=== PATIENT | female | born 1965 | race Caucasian/White ===

== ENCOUNTER 2016-06-08 21:35 | Emergency (ER) | payer SELFPAY ==
--- NOTE | 2016-06-08 22:14 | RAD ---
LEFT ELBOW FOUR VIEWS: History: Left elbow injury. FINDINGS: Radiocapitellar alignment is maintained. There is no acute fracture, dislocation or fluid distentio n of the joint capsule evident. IMPRESSION: No acute osseous abnormalities are demonstrated. POS: MAURICIO
--- NOTE | 2016-06-08 23:09 | ERRECORD ---
HEALTH SYSTEM EMERGENCY RECORD HPI ELBOW (21:48 DHAM) CHIEF COMPLAINT: Patient presents for evaluation of pain, to the left elbow. 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 It didn't really hurt at the time but the next morning it was more painful with a hint of swelling over the medial epicondyle. MECHANISM OF INJURY: Mechanism of injury: Blunt trauma, by direct blow. LOCATION: Symptoms are localized, most severe in the left medial condyle. QUALITY: Pain is dull in nature, described as aching. SEVERITY: Current severity of pain rated as 8/10. TIME COURSE: Gradual onset of symptoms, 2, days priror to arrival, Symptoms are worsening. ASSOCIATED WITH: No associated alcohol use, No associated distal injury, No associated distal neuro complaint, Associated with erythema, for 1 day, No associated fever, No associated finger pain, No associated hand pain, No associated hand numbness, No associated open wounds, Associated with shoulder pain, No associated tingling, Associated with warmth, No associated weakness distal to injury, No associated wrist pain. EXACERBATED BY: Patient's condition exacerbated by flexion, Patient's condition relieved by nothing because patient has not tried anything for relief. RELIEVED BY: Patient's condition relieved by remaining still, Patient's condition relieved by rest. ROS (21:54 DHAM) CONSTITUTIONAL: Historian denies chills, denies fever. MUSCULOSKELETAL: Historian reports arthralgias, denies deformity, denies fall, reports injury, reports joint redness, reports joint swelling, denies myalgias, denies neck pain. SKIN: Historian reports skin changes. NEUROLOGIC: Historian denies focal weakness, denies paresthesias. HEMO/LYMPHATIC: Historian denies abnormal blood clotting, denies easy bruising. ALLERGIC/IMMUNOLOGIC: Historian denies frequent infections, denies hives. PAST MEDICAL HISTORY (21:44 JDEA) MEDICAL HISTORY: Past medical history includes cardiac history, heart cath in 2004. FEMALE SURGICAL HISTORY: one , Surgical history of hysterectomy, Surgical history of tonsillectomy, cholecystectomy. SOCIAL HISTORY: Lives at home, with family, Patient drinks socially, Patient denies drug use, Patient is a former tobacco user, smoked cigarettes, Patient quit smoking in the past year, Tobacco &a-1R&a+25V*p+0X*f4130A*c202B*c15G*c2P*p-0X&a-25V&a+1R Name: Arielle Avila : 1965 F51 MedRec: [id number] AcctNum: [id number] Prepared: WedJun 09, 2016 01:14 by Interface Page 1 of 3 pMD [facility] EMERGENCY RECORD history notes: pk/day. KNOWN ALLERGIES No Known Drug Allergies CURRENT MEDICATIONS (WedJun 08, 2016 21:43 JDEA) reflux medication VITAL SIGNS (21:41 JDEA) VITAL SIGNS: BP: 150/70, Pulse: 96, Resp: 18, Temp: 98 (Oral), Pain: 8, O2 sat: 96 on Room Air, Time: 06/08/2016 21:41. PHYSICAL EXAM (21:54 DHAM) CONSTITUTIONAL: Vital Signs Reviewed, Patient afebrile, Pulse normal, Blood pressure normal, Respiratory rate normal, Normal pulse oximetry, Patient appears non toxic, Patient appears, in mild pain distress, Nursing notes reviewed. UPPER EXTREMITY: no pain to the right UE at all. she has chronic but intermittent left shoulder pain. No pain to int or ext rotation or flexion/extension/abduction of the shoulder. her left elbow has some moderate edema diffusely around the medial epicondyle with a hint of erythema and warmth. the maximal pain seems to be just over the medial epicondyle. she has full flexion and extension with mild pain as well as full pronation and supination with really no pain at all to the left elbow during this. distal neurovascular exam is normal. with normal cap refill, sensation and motor exam. no tenderness of the extensor bundle and resisted finger extension is normal and non-tender. NEURO: Corey coma scale 15, Neuro exam findings include patient oriented to person, place and time, Speech normal, Gait normal, Memory normal, Cranial nerves intact, no focal motor deficits, no focal sensory deficits. SKIN: Skin exam included findings of skin warm, dry, see UE above for skin exam. LYMPHATIC: Lymphatic exam normal. RADIOLOGYINTERPRETATION (22:07 DHAM) UPPER EXTERMITIES: Radiological interpretation of, the left elbow shows, elbow negative, no fracture, no dislocation, no fat pads, no effusion, no foreign body, no bony lesion, no degenerative joint disease. PROBLEM LIST No recorded problems DIAGNOSIS (22:07 LISAM) FINAL: PRIMARY: bursitis medial elbow. PRESCRIPTION No recorded prescriptions &a-1R&a+25V*p+0X*b2946A*c202B*c15G*c2P*p-0X&a-25V&a+1R Name: Austin Arielle J : 1965 0 MedRec: [id number] AcctNum: [id number] Prepared: WedJun 09, 2016 01:14 by Interface Page 2 of 3 pMD [facility] EMERGENCY RECORD DISPOSITION PATIENT: Disposition Type: Discharge, Disposition: *Discharge Home. (22:07 CARLENE) Patient left the department. (22:34 ABY) Lynn: CARLENE=MD Landy, Mp BADILLO=LUPE Terrell, Noris &a-1R&a+25V*p+0X*p0822K*c202B*c15G*c2P*p-0X&a-25V&a+1R Name: Arielle Avila : 1965 0 MedRec: [id number] AcctNum: [id number] Prepared: WedJun 09, 2016 01:14 by Interface Page 3 of 3 pMD MTDD
--- NOTE | 2016-06-08 23:10 | PICIS ---
[facility] EMERGENCY RECORD TRIAGE (WedJun 08, 2016 21:43 JDEA) TRIAGE NOTES: pt complaining of left elbow pain after hitting it on a lilly register. (WedJun 08, 2016 21:43 JDEA) PATIENT: NAME: Arielle Avila, AGE: 51, GENDER: female, : Wed1965, TIME OF GREET: WedJun 08, 2016 21:36, PREFERRED LANGUAGE: Burundian, ETHNICITY: Not or , ECODE BILLING MAP: [facility], SSN: [id number], Zip Code: [address], KG WEIGHT: 79.38, PHONE: , , , PERSON ID: [id number], PCP: [facility], . (WedJun 08, 2016 21:43 JDEA) COMPLAINT: LEFT ELBOW SWOLLEN. (WedJun 08, 2016 21:43 JDEA) ADMISSION: URGENCY: 4 Non Urgent, ADMISSION SOURCE: Work, TRANSPORT: Walk-in, BED: TRIAGE. (WedJun 08, 2016 21:43 JDEA) IMMUNIZATIONS: Flu vaccine up to date, Tetanus immunization up to date, Pneumococcal vaccine not up to date. (21:44 JDEA) TRIAGE SCREENING: Patient denies suicidal ideation, Patient denies presence of domestic violence. (21:44 JDEA) LMP: LMP: Not Applicable. (21:44 JDEA) PROVIDERS: TRIAGE NURSE: Noris Terrell RN. (WedJun 08, 2016 21:43 JDEA) VITAL SIGNS: BP 150/70, Pulse 96, Resp 18, Temp 98, (Oral), Pain 8, O2 Sat 96, on Room Air, Time 06/08/2016 21:41. (21:41 JDEA) PREVIOUS VISIT ALLERGIES: No Known Drug Allergies. (WedJun 08, 2016 21:43 JDEA) No Known Drug Allergies. (21:44 JDEA) KNOWN ALLERGIES No Known Drug Allergies CURRENT MEDICATIONS (WedJun 08, 2016 21:43 JDEA) reflux medication VITAL SIGNS (21:41 JDEA) VITAL SIGNS: BP: 150/70, Pulse: 96, Resp: 18, Temp: 98 (Oral), Pain: 8, O2 sat: 96 on Room Air, Time: 06/08/2016 21:41. NURSING ASSESSMENT: EXTREMITY UPPER (21:44 JDEA) CONSTITUTIONAL: Complex assessment performed, Patient arrives ambulatory, Gait steady, History obtained from patient, Patient appears comfortable, Patient cooperative, Patient alert, Oriented to person, place and time, Skin warm, Skin dry, Skin normal in color, Mucous membranes pink, Mucous membranes moist, Patient complains of elbow pain, pt in states that she hit her left elbow on a lilly register. PAIN: aching pain, to the left elbow, constant, on a scale 0-10 patient rates pain as 8. LEFT UPPER EXTREMITY: Left upper extremity assessment findings include capillary refill less than 2 seconds, Skin color normal to hand, Skin temperature to hand warm, Distal sensation intact, Muscle &a-1R&a+25V*p+0X*h2419S*c202B*c15G*c2P*p-0X&a-25V&a+1R Name: Arielle Avila Carmela : 1965 F51 MedRec: [id number] AcctNum: [id number] Prepared: WedJun 09, 2016 01:14 by Interface Page 1 of 5 pMD [facility] EMERGENCY RECORD tone normal, no edema present, radial pulse is +3. RIGHT UPPER EXTREMITY: Right upper extremity assessment findings include capillary refill less than 2 seconds, Skin color normal to hand, Skin temperature to hand warm, Distal sensation intact, Muscle tone normal, no edema present, radial pulse is +3. NOTES: Patient tolerated procedure well. SAFETY: Side rails up, Cart/Stretcher in lowest position, Call light within reach, Hospital ID band on. NURSING PROCEDURE: SPLINTING (22:15 MDRUCHI) PATIENT IDENTIFIER: Patient actively involved in identification process, Patient's identity verified by patient stating name, Patient's identity verified by hospital ID bracelet. SPLINTING: Splinting indicated for strain care, Splint applied to, the left elbow, sling applied, Immobilized in position of function. FOLLOW-UP: After procedure, capillary refill less than 2 seconds, After procedure, distal circulation intact, After procedure, distal motor function intact, After procedure, distal sensation intact, After procedure, distal pulses present. NOTES: Emotional support needed and given, Patient tolerated procedure well. SAFETY: Side rails up, Cart/Stretcher in lowest position, Family at bedside, Call light within reach, Hospital ID band on. ORDER DETAILS Order Name: Miscellaneous Nurse Order(s), Status: Done, Time: 22:26 06/08/2016, User: HAMILTON, - Ordered for: MD Bill Darren, - Entered by: MD Bill Darren - [facility] Jun 08, 2016 22:13, - Quantity: 1, Order Name: XR Elbow Lt 4 View STANDARD, Status: Active, Time: 21:49 06/08/2016, User: CARLENE, - Ordered for: MD Bill Darren, - Entered by: MD Bill Darren - [facility] Jun 08, 2016 21:49, - Quantity: 1. HPI ELBOW (21:48 [facility]) CHIEF COMPLAINT: Patient presents for evaluation of pain, to the left elbow. 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 It didn't really hurt at the time but the next morning it was more painful with a hint of swelling over the medial epicondyle. MECHANISM OF INJURY: Mechanism of injury: Blunt trauma, by direct blow. LOCATION: Symptoms are localized, most severe in the left medial condyle. QUALITY: Pain is dull in nature, described as aching. SEVERITY: Current severity of pain &a-1R&a+25V*p+0X*k7804S*c202B*c15G*c2P*p-0X&a-25V&a+1R Name: Austin Arielle J : 1965 F51 MedRec: [id number] AcctNum: [id number] Prepared: WedJun 09, 2016 01:14 by Interface Page 2 of 5 pMD [facility] EMERGENCY RECORD rated as 8/10. TIME COURSE: Gradual onset of symptoms, 2, days priror to arrival, Symptoms are worsening. ASSOCIATED WITH: No associated alcohol use, No associated distal injury, No associated distal neuro complaint, Associated with erythema, for 1 day, No associated fever, No associated finger pain, No associated hand pain, No associated hand numbness, No associated open wounds, Associated with shoulder pain, No associated tingling, Associated with warmth, No associated weakness distal to injury, No associated wrist pain. EXACERBATED BY: Patient's condition exacerbated by flexion, Patient's condition relieved by nothing because patient has not tried anything for relief. RELIEVED BY: Patient's condition relieved by remaining still, Patient's condition relieved by rest. ROS (21:54 DHAM) CONSTITUTIONAL: Historian denies chills, denies fever. MUSCULOSKELETAL: Historian reports arthralgias, denies deformity, denies fall, reports injury, reports joint redness, reports joint swelling, denies myalgias, denies neck pain. SKIN: Historian reports skin changes. NEUROLOGIC: Historian denies focal weakness, denies paresthesias. HEMO/LYMPHATIC: Historian denies abnormal blood clotting, denies easy bruising. ALLERGIC/IMMUNOLOGIC: Historian denies frequent infections, denies hives. PAST MEDICAL HISTORY (21:44 JDEA) MEDICAL HISTORY: Past medical history includes cardiac history, heart cath in 2004. FEMALE SURGICAL HISTORY: one , Surgical history of hysterectomy, Surgical history of tonsillectomy, cholecystectomy. SOCIAL HISTORY: Lives at home, with family, Patient drinks socially, Patient denies drug use, Patient is a former tobacco user, smoked cigarettes, Patient quit smoking in the past year, Tobacco history notes: pk/day. PHYSICAL EXAM (21:54 DHAM) CONSTITUTIONAL: Vital Signs Reviewed, Patient afebrile, Pulse normal, Blood pressure normal, Respiratory rate normal, Normal pulse oximetry, Patient appears non toxic, Patient appears, in mild pain distress, Nursing notes reviewed. UPPER EXTREMITY: no pain to the right UE at all. she has chronic but intermittent left shoulder pain. No pain to int or ext rotation or flexion/extension/abduction of the shoulder. her left elbow has some moderate edema diffusely around the medial epicondyle with a hint of erythema and warmth. the maximal pain seems to be just &a-1R&a+25V*p+0X*d5348E*c202B*c15G*c2P*p-0X&a-25V&a+1R Name: AvilaDeepneli Casey : 1965 F51 MedRec: [id number] AcctNum: [id number] Prepared: Jayne Jun 09, 2016 01:14 by Interface Page 3 of 5 pMD [facility] EMERGENCY RECORD over the medial epicondyle. she has full flexion and extension with mild pain as well as full pronation and supination with really no pain at all to the left elbow during this. distal neurovascular exam is normal. with normal cap refill, sensation and motor exam. no tenderness of the extensor bundle and resisted finger extension is normal and non-tender. NEURO: Corey coma scale 15, Neuro exam findings include patient oriented to person, place and time, Speech normal, Gait normal, Memory normal, Cranial nerves intact, no focal motor deficits, no focal sensory deficits. SKIN: Skin exam included findings of skin warm, dry, see UE above for skin exam. LYMPHATIC: Lymphatic exam normal. EVENTS TRANSFER: Triage to Emergency Triage. (WedJun 08, 2016 21:43 JDEA) Emergency Triage to Main ED -05. (21:45 JDEA) Removed from Emergency Main ED -05. (22:34 JDEA) RADIOLOGYINTERPRETATION (22:07 DHAM) UPPER EXTERMITIES: Radiological interpretation of, the left elbow shows, elbow negative, no fracture, no dislocation, no fat pads, no effusion, no foreign body, no bony lesion, no degenerative joint disease. PROBLEM LIST No recorded problems DIAGNOSIS (22:07 DHAM) FINAL: PRIMARY: bursitis medial elbow. DISPOSITION PATIENT: Disposition Type: Discharge, Disposition: *Discharge Home. (22:07 DHAM) Patient left the department. (22:34 JDEA) INSTRUCTION (22:11 DHAM) DISCHARGE: BURSITIS, ELBOW (OLECRANON). FOLLOWUP: [facility], ., Clinic, [address] [place] [address], [address], [facility] , . SPECIAL: This doesn't appear to be an olecranon bursitis but rather a bursitis of the medial elbow. Rest, ice on 30 minutes and off 30 minutes, sling for several days (coming out of the sling 5-10 times a day to work your range of motion of the left elbow as I demonstrated here toncorrie). Aleve 2 twice a day for several days up to a week. Continue Prilosec to protect your stomach while taking the Aleve. Light duty for several days. See your pcp in 72 hours for recheck to consider relaxing your &a-1R&a+25V*p+0X*i9453O*c202B*c15G*c2P*p-0X&a-25V&a+1R Name: Arielle Avila : 1965 [facility] MedRec: [id number] AcctNum: [id number] Prepared: WedJun 09, 2016 01:14 by Interface Page 4 of 5 pMD [facility] EMERGENCY RECORD restrictions. PRESCRIPTION No recorded prescriptions IMAGING (22:31 HAMILTON) *DISCHARGE INSTRUCTIONS RECEIPT: Image captured from scanner. *SUPPLY CHARGE SHEET: Image captured from scanner. ADMIN (WedJun 09, 2016 01:09 CARLENE) DIGITAL SIGNATURE: MD Bill Darren. Lynn: CARLENE=MD Bill Darren JDEA=LUPE Terrell, Noris VILLASENOR=LUPE Cosby, Christina &a-1R&a+25V*p+0X*h9142K*c202B*c15G*c2P*p-0X&a-25V&a+1R Name: Arielle Avila : 1965 [facility] MedRec: [id number] AcctNum: [id number] Prepared: WedJun 09, 2016 01:14 by Interface Page 5 of 5 pMD MTDD
== END 2016-06-08 22:20 | disposition home or self-care (01) ==
LOC: MADERS 21:35
DX: M70.32 Other bursitis of elbow, left elbow (principal); Z87.891 Personal history of nicotine dependence
CPT/HCPCS: 99283

== ENCOUNTER 2017-10-05 15:57 | Emergency (ER) | payer SELFPAY ==
[2017-10-05 16:33] LABS: Bilirubin Negative (Negative); Blood, Urine Moderate (Negative); Glucose, Urine (Dipstick) Negative (Negative); Leukocyte Trace (Negative); Nitrite Negative (Negative); Protein, Urine (Dipstick) Negative (Neg-Trace); Urobilinogen 0.2 mg/dL (0.2-1.0)
[2017-10-05 16:35] LABS: Pregnancy Test - Urine (BHCG) Negative (Negative); Pregu Control Background? CLEAR/WHITE (CLR/WHITE); Pregu Control Bar Appear? YES (CONTROL BAR)
[2017-10-05 16:36] LABS: Bacteria/HPF 1+ HPF (None Seen); Clarity Hazy (Clear); RBC/HPF 0-3 HPF (0-3); Squamous Epithelial 0-3 HPF (0-3)
[2017-10-05 17:24] LABS: #Eosinphils 0.1 thou/uL (0.0-0.7); #Lymphocytes 2.1 thou/uL (1.20-3.40); #Monocytes 0.6 thou/uL (0.11-0.59); #Neutrophils 6.3 thou/uL (1.40-6.50); %Basophils 0.5 % (0.0-1.0); %Eosinophils 1.1 % (0.0-10.0); %Lymphocytes 22.6 % (21.0-51.0); %Neutrophils 68.9 % (42.0-75.0); Hemoglobin 13.1 g/dL (12.0-16.0); Mean Corpuscular HGB CONC 32.9 g/dL (32.0-36.0); Mean Corpuscular Hemoglobin 27.5 pg (27.0-31.0); Mean Corpuscular Volume 83.5 fl (81.0-99.0); Mean Platelet Volume 7.9 fL (7.4-10.4); Platelet Count 249 thou/uL (130-400); RBC Distribution Width 11.6 % (11.5-14.5); Red Blood Cell (RBC) Count 4.78 mill/uL (4.20-5.40); White Blood Cell (WBC) Count 9.1 thou/uL (4.8-10.8)
[2017-10-05] MEDS ORDERED: Ketorolac Tromethamine 30 MG/ML VIAL ONE (17:24)
[2017-10-05] MEDS ORDERED: HYDROcodone/Acetaminophen 10/325 mg Tablet ONE (17:24)
[2017-10-05] MEDS ORDERED: Sulfameth/Trimethoprim DS 800-160mg TAB ONE (17:24)
[2017-10-05] MEDS ORDERED: Ondansetron ODT 4 MG TAB ONE (17:24)
[2017-10-05 17:41] LABS: ALT (SGPT) 16 U/L (8-55); AST (SGOT) 14 U/L (5-34); Alkaline Phosphatase 69 U/L (40-150); Anion Gap 14 mmol/L (10-20); BUN (Urea Nitrogen) 11 mg/dL (9.8-20.1); Bilirubin, Total 0.4 mg/dL (0.2-1.2); Calc. Creatinine Clearance 0 mL/min (70-130); Calcium 8.8 mg/dL (7.8-10.44); Carbon Dioxide 32 mmol/L (22-29); Chloride 100 mmol/L (98-107); Estimated GFR-MDRD 83; Globulin 2.8 g/dL (2.4-3.5); Glucose 72 mg/dL (70-105); Lipase 38 U/L (8-78); Protein, Total 6.8 g/dL (6.0-8.3); Sodium 143 mmol/L (136-145)
== END 2017-10-05 19:34 | disposition home or self-care (01) ==
LOC: MADERS 15:57
DX: N39.0 Urinary tract infection, site not specified (principal); E03.9 Hypothyroidism, unspecified; K21.9 Gastro-esophageal reflux disease without esophagitis; I10 Essential (primary) hypertension; Z87.891 Personal history of nicotine dependence; Z79.899 Other long term (current) drug therapy; Z79.82 Long term (current) use of aspirin
CPT/HCPCS: 36415; 80053; 81001; 81025; 82150; 83690; 85025; 87077; 87086; 87186; 96374; J1885; Q0162

== ENCOUNTER 2018-01-09 10:18 | Emergency (ER) | payer SELFPAY ==
[2018-01-09] MEDS ORDERED: Aspirin 325 MG TAB ONE (10:40)
[2018-01-09] MEDS ORDERED: Famotidine 20 MG TAB ONE (10:40)
[2018-01-09 10:47] LABS: #Basophils 0.1 thou/uL (0.0-0.2); #Eosinphils 0.1 thou/uL (0.0-0.7); #Lymphocytes 2.4 thou/uL (1.20-3.40); #Monocytes 0.6 thou/uL (0.11-0.59); #Neutrophils 5.2 thou/uL (1.40-6.50); %Eosinophils 1.2 % (0.0-10.0); %Lymphocytes 28.2 % (21.0-51.0); %Monocytes 7.4 % (0.0-10.0); %Neutrophils 62.2 % (42.0-75.0); Hemoglobin 16.2 g/dL (12.0-16.0); Mean Corpuscular HGB CONC 33.4 g/dL (32.0-36.0); Mean Corpuscular Hemoglobin 28.6 pg (27.0-31.0); Mean Corpuscular Volume 85.6 fL (78.0-98.0); Platelet Count 321 thou/uL (130-400); RBC Distribution Width 11.7 % (11.5-14.5); Red Blood Cell (RBC) Count 5.64 mill/uL (4.20-5.40); White Blood Cell (WBC) Count 8.4 thou/uL (4.8-10.8)
--- NOTE | 2018-01-09 11:03 | RAD ---
PORTABLE UPRIGHT FRONTAL CHEST RADIOGRAPH: DATE: 01/09/18. COMPARISON: 10/09/14. HISTORY: Hypertension. FINDINGS: There is mild elevation of the right hemidiaphragm. There is no pneumothorax, pleural fluid, focal c onsolidation, or alveolar edema. Rounded density at the lower midline chest suggests hiatal hernia. IMPRESSION: No acute findings. POS: LINDA
[2018-01-09 11:06] LABS: Anion Gap 17 mmol/L (10-20); BUN (Urea Nitrogen) 41 mg/dL (9.8-20.1); Calc. Creatinine Clearance 0 mL/min (70-130); Carbon Dioxide 26 mmol/L (22-29); Chloride 100 mmol/L (98-107); Estimated GFR-MDRD 29; Glucose 96 mg/dL (70-105); Potassium 3.8 mmol/L (3.5-5.1); Sodium 139 mmol/L (136-145)
[2018-01-09 11:10] LABS: CKMB 1.4 ng/mL (0-6.6); Troponin I Less than 0.010 ng/mL (< 0.028)
[2018-01-09 11:51] LABS: Bilirubin Negative (Negative); Blood, Urine Negative (Negative); Clarity Slightly Cloudy (Clear); Glucose, Urine (Dipstick) Negative (Negative); Leukocyte Trace (Negative); Nitrite Positive (Negative); Protein, Urine (Dipstick) Negative (Neg-Trace); Urobilinogen 0.2 mg/dL (0.2-1.0)
[2018-01-09 12:00] LABS: Bacteria/HPF 4+ HPF (None Seen); RBC/HPF 0-3 HPF (0-3)
[2018-01-09 12:01] LABS: Crystals/HPF 1+ CA OXALATE HPF (Negative)
[2018-01-09 12:55] LABS: INR-International Normal Ratio 0.8; PTT 25.8 SEC (22.9-36.1); Prothrombin Time 11.6 SEC (12.0-14.7)
[2018-01-09 12:57] LABS: D-Dimer Test Less than 0.27 *mcg/mL (0.27-0.43)
[2018-01-09] MEDS ORDERED: Sodium Chloride 0.9% 1,000 ML BAG ONE (14:12)
== END 2018-01-09 11:54 | disposition short-term general hospital (02) ==
LOC: MADERS 10:18
DX: I95.9 Hypotension, unspecified (principal); N19 Unspecified kidney failure; E03.9 Hypothyroidism, unspecified; I10 Essential (primary) hypertension; Z87.891 Personal history of nicotine dependence; Z79.82 Long term (current) use of aspirin; Z79.899 Other long term (current) drug therapy
CPT/HCPCS: 71045; 80048; 81003; 81015; 82553; 83605; 83880; 84443; 84484; 85025; 85379; 85610; 85730; 93005; 94760; 96360; J7050

== ENCOUNTER 2018-10-29 16:18 | Emergency (ER) | payer OTHER ==
--- NOTE | 2018-10-29 17:12 | RAD ---
EXAM: Chest PA and lateral: HISTORY: Chest pain COMPARISON: 11/17/2014 FINDINGS: Heart: Normal cardiac silhouette Aorta: Unremarkable Pulmonary vessels: Normal Costophrenic angles: Costophrenic angles are clear. Lungs: No consolidation or masses. Pneumothorax: No pneumothorax Osseous structures: No osseous abnormalities Incidental hiatal hernia is noted IMPRESSION: No acute cardiopulmonary process.
[2018-10-29 17:32] LABS: #Basophils 0.1 thou/uL (0.0-0.2); #Eosinphils 0.1 thou/uL (0.0-0.7); #Lymphocytes 2.2 thou/uL (1.20-3.40); #Monocytes 0.7 thou/uL (0.11-0.59); #Neutrophils 5.3 thou/uL (1.40-6.50); %Basophils 0.9 % (0.0-1.0); %Eosinophils 0.8 % (0.0-10.0); %Lymphocytes 25.7 % (21.0-51.0); %Monocytes 8.8 % (0.0-10.0); %Neutrophils 63.7 % (42.0-75.0); Hemoglobin 12.8 g/dL (12.0-16.0); Mean Corpuscular HGB CONC 33.5 g/dL (32.0-36.0); Mean Corpuscular Hemoglobin 26.7 pg (27.0-31.0); Mean Corpuscular Volume 79.6 fL (78.0-98.0); Mean Platelet Volume 7.5 fL (7.4-10.4); Platelet Count 276 thou/uL (130-400); RBC Distribution Width 12.6 % (11.5-14.5); Red Blood Cell (RBC) Count 4.79 mill/uL (4.20-5.40); White Blood Cell (WBC) Count 8.4 thou/uL (4.8-10.8)
[2018-10-29 17:44] LABS: ALT (SGPT) 18 U/L (8-55); AST (SGOT) 15 U/L (5-34); Albumin 4.1 g/dL (3.5-5.0); Alkaline Phosphatase 71 U/L (40-150); Anion Gap 15 mmol/L (10-20); BUN (Urea Nitrogen) 42 mg/dL (9.8-20.1); Bilirubin, Total 0.3 mg/dL (0.2-1.2); Calc. Creatinine Clearance 0 mL/min (70-130); Calcium 8.7 mg/dL (7.8-10.44); Carbon Dioxide 22 mmol/L (22-29); Chloride 103 mmol/L (98-107); Estimated GFR-MDRD 35; Globulin 2.8 g/dL (2.4-3.5); Glucose 98 mg/dL (70-105); Potassium 4.1 mmol/L (3.5-5.1); Protein, Total 6.9 g/dL (6.0-8.3); Sodium 136 mmol/L (136-145)
[2018-10-29] MEDS ORDERED: Aspirin 325 MG TAB ONE (18:15)
[2018-10-29] MEDS ORDERED: Sodium Chloride 0.9% 1,000 ML ONE (18:15)
[2018-10-30] MEDS ORDERED: Sodium Chloride 0.9% 1,000 ML BAG ONE (16:30)
== END 2018-10-29 19:17 | disposition short-term general hospital (02) ==
LOC: MADERS 16:18
DX: R07.2 Precordial pain (principal); N19 Unspecified kidney failure; I95.9 Hypotension, unspecified; E03.9 Hypothyroidism, unspecified; K21.9 Gastro-esophageal reflux disease without esophagitis; I10 Essential (primary) hypertension; Z87.891 Personal history of nicotine dependence; Z79.899 Other long term (current) drug therapy; Z79.82 Long term (current) use of aspirin
CPT/HCPCS: 71046; 80053; 83605; 83880; 84484; 85025; 93005; 96360; J7050

== ENCOUNTER 2019-09-23 03:49 | Emergency (ER) | payer SELFPAY ==
[2019-09-23] MEDS ORDERED: Sucralfate 1 GM TAB ONE (04:26)
[2019-09-23] MEDS ORDERED: Mag-Al Plus 1200 MG/1200 MG/120 MG/30 ML UDCUP ONE (04:27)
[2019-09-23] MEDS ORDERED: Lidocaine Viscous Sol 2% 15 ml UD Cup ONE (04:27)
[2019-09-23 04:45] LABS: #Basophils 0.1 thou/uL (0.0-0.2); #Eosinphils 0.1 thou/uL (0.0-0.7); #Lymphocytes 2.3 thou/uL (1.20-3.40); #Monocytes 0.7 thou/uL (0.11-0.59); #Neutrophils 4.1 thou/uL (1.40-6.50); %Basophils 0.8 % (0.0-1.0); %Lymphocytes 32.7 % (21.0-51.0); %Monocytes 9.5 % (0.0-10.0); Hemoglobin 10.6 g/dL (12.0-16.0); Hypochromia SLIGHT = 6-15 cells (100X) (0-5/hpf); MDiff Complete? YES; Mean Corpuscular HGB CONC 30.6 g/dL (32.0-36.0); Mean Corpuscular Volume 78.3 fL (78.0-98.0); Mean Platelet Volume 7.5 fL (7.4-10.4); Microcytosis MODERATE=15-30 cells (100X) (0-5/hpf); Platelet Count 357 thou/uL (130-400); RBC Distribution Width 12.7 % (11.5-14.5); Red Blood Cell (RBC) Count 4.36 mill/uL (4.20-5.40); White Blood Cell (WBC) Count 7.3 thou/uL (4.8-10.8)
[2019-09-23 04:47] LABS: BHCG - Serum Negative (NEGATIVE); Pregs Control Background? CLEAR/WHITE (CLR/WHITE); Pregs Control Bar Appear? YES (CONTROL BAR)
[2019-09-23 04:53] LABS: ALT (SGPT) 9 U/L (8-55); AST (SGOT) 12 U/L (5-34); Albumin 4.1 g/dL (3.5-5.0); Alkaline Phosphatase 74 U/L (40-110); Anion Gap 14 mmol/L (10-20); BUN (Urea Nitrogen) 14 mg/dL (9.8-20.1); Bilirubin, Total 0.3 mg/dL (0.2-1.2); Calc. Creatinine Clearance 0 mL/min (70-130); Calcium 8.9 mg/dL (7.8-10.44); Carbon Dioxide 24 mmol/L (22-29); Chloride 107 mmol/L (98-107); Estimated GFR-MDRD 53; Globulin 2.7 g/dL (2.4-3.5); Glucose 92 mg/dL (70-105); Lipase 32 U/L (8-78); Protein, Total 6.8 g/dL (6.0-8.3); Sodium 141 mmol/L (136-145)
== END 2019-09-23 06:10 | disposition home or self-care (01) ==
LOC: MADERS 03:49
DX: K29.00 Acute gastritis without bleeding (principal); F32.9 Major depressive disorder, single episode, unspecified; E03.9 Hypothyroidism, unspecified; K21.9 Gastro-esophageal reflux disease without esophagitis; I10 Essential (primary) hypertension; Z87.891 Personal history of nicotine dependence; Z79.899 Other long term (current) drug therapy
CPT/HCPCS: 36415; 80053; 82274; 83605; 83690; 84703; 85025; 93005

== ENCOUNTER 2020-04-05 13:26 | Emergency (ER) | payer SELFPAY ==
[2020-04-05 14:01] LABS: #Basophils 0.1 thou/uL (0.0-0.2); #Eosinphils 0.1 thou/uL (0.0-0.7); #Lymphocytes 1.2 thou/uL (1.20-3.40); #Monocytes 0.5 thou/uL (0.11-0.59); #Neutrophils 4.7 thou/uL (1.40-6.50); %Basophils 1.7 % (0.0-1.0); %Eosinophils 1.7 % (0.0-10.0); %Lymphocytes 18.1 % (21.0-51.0); %Monocytes 7.9 % (0.0-10.0); %Neutrophils 70.7 % (42.0-75.0); Hemoglobin 11.2 g/dL (12.0-16.0); Mean Corpuscular HGB CONC 29.4 g/dL (32.0-36.0); Mean Corpuscular Hemoglobin 19.4 pg (27.0-31.0); Mean Corpuscular Volume 65.9 fL (78.0-98.0); Mean Platelet Volume 8.9 fL (7.4-10.4); Platelet Count 363 thou/uL (130-400); RBC Distribution Width 14.6 % (11.5-14.5); Red Blood Cell (RBC) Count 5.77 mill/uL (4.20-5.40); White Blood Cell (WBC) Count 6.7 thou/uL (4.8-10.8)
[2020-04-05 14:04] LABS: Anisocytosis SLIGHT = 6-15 cells (100X) (0-5/hpf); Platelet Morphology Comment Appears Adequate
--- NOTE | 2020-04-05 14:15 | RAD ---
SINGLE VIEW CHEST: Date: 04/05/2020 COMPARISON: 01/09/18. HISTORY: Chest pain. FINDINGS: Single view of the chest shows normal sized cardiomediastinal silhouette. There is stable elevation o f the right hemidiaphragm. There is no evidence of consolidation, mass, or pleural effusion. The bone s are unremarkable. IMPRESSION: No evidence of acute cardiopulmonary disease. POS: EAA
[2020-04-05 14:23] LABS: ALT (SGPT) 13 U/L (8-55); AST (SGOT) 14 U/L (5-34); Albumin 4.1 g/dL (3.5-5.0); Alkaline Phosphatase 89 U/L (40-110); Anion Gap 15 mmol/L (10-20); BUN (Urea Nitrogen) 14 mg/dL (9.8-20.1); Bilirubin, Total 0.5 mg/dL (0.2-1.2); CK (CPK) 43 U/L (29-168); Calc. Creatinine Clearance 0 mL/min (70-130); Calcium 8.8 mg/dL (7.8-10.44); Carbon Dioxide 23 mmol/L (22-29); Chloride 105 mmol/L (98-107); Globulin 2.8 g/dL (2.4-3.5); Glucose 110 mg/dL (70-105); Lipase 25 U/L (8-78); Potassium 3.9 mmol/L (3.5-5.1); Protein, Total 6.9 g/dL (6.0-8.3); Sodium 139 mmol/L (136-145)
[2020-04-05] MEDS ORDERED: Aspirin Chewable 81 MG TAB ONE (15:13)
== END 2020-04-05 15:22 | disposition short-term general hospital (02) ==
LOC: MADERS 13:26
DX: R07.9 Chest pain, unspecified (principal); K21.9 Gastro-esophageal reflux disease without esophagitis; I10 Essential (primary) hypertension; Z87.891 Personal history of nicotine dependence; Z79.899 Other long term (current) drug therapy
CPT/HCPCS: 36415; 71045; 80053; 82550; 83690; 83880; 84484; 85025; 85379; 93005; 94760

== ENCOUNTER 2021-02-21 18:52 | Emergency (ER) | payer SELFPAY ==
[2021-02-21] MEDS ORDERED: Cephalexin 500 MG CAP ONE (20:35)
== END 2021-02-21 20:39 | disposition home or self-care (01) ==
LOC: MADERS 18:52
DX: L03.311 Cellulitis of abdominal wall (principal); K21.9 Gastro-esophageal reflux disease without esophagitis; I10 Essential (primary) hypertension; Z87.891 Personal history of nicotine dependence; Z79.899 Other long term (current) drug therapy

== ENCOUNTER 2021-05-23 06:54 | Emergency (ER) | payer SELFPAY ==
[2021-05-23 07:45] LABS: Bilirubin Negative (Negative); Blood, Urine Negative (Negative); Clarity Clear (Clear); Glucose, Urine (Dipstick) Negative (Negative); Ketone, Urine Negative (Negative); Leukocyte Negative (Negative); Nitrite Negative (Negative); Protein, Urine (Dipstick) Negative (Neg-Trace); Urobilinogen 0.2 mg/dL (Less than 2); pH, Urine 5.5 (5.0-9.0)
[2021-05-23 07:51] LABS: Specific Gravity, Urine 1.028 (1.002-1.036)
[2021-05-23 08:05] LABS: #Basophils 0.1 thou/uL (0.0-0.2); #Eosinphils 0.1 thou/uL (0.0-0.7); #Lymphocytes 1.6 thou/uL (1.20-3.40); #Monocytes 0.5 thou/uL (0.11-0.59); #Neutrophils 3.4 thou/uL (1.40-6.50); %Basophils 2.3 % (0.0-1.0); %Eosinophils 2.2 % (0.0-10.0); %Lymphocytes 27.3 % (21.0-51.0); %Neutrophils 59.1 % (42.0-75.0); Hemoglobin 11.3 g/dL (12.0-16.0); Mean Corpuscular HGB CONC 30.9 g/dL (32.0-36.0); Mean Corpuscular Hemoglobin 23.7 pg (27.0-31.0); Mean Corpuscular Volume 76.9 fL (78.0-98.0); Mean Platelet Volume 7.4 fL (7.4-10.4); Platelet Count 304 thou/uL (130-400); RBC Distribution Width 13.4 % (11.5-14.5); Red Blood Cell (RBC) Count 4.75 mill/uL (4.20-5.40); White Blood Cell (WBC) Count 5.7 thou/uL (4.8-10.8)
[2021-05-23 08:16] LABS: Anisocytosis SLIGHT = 6-15 cells (100X) (0-5/hpf); Platelet Morphology Comment Appears Adequate
[2021-05-23 08:23] LABS: Globulin 2.6 g/dL (2.4-3.5)
[2021-05-23 08:24] LABS: Alkaline Phosphatase 77 U/L (40-110)
[2021-05-23 08:26] LABS: ALT (SGPT) 14 U/L (8-55); AST (SGOT) 12 U/L (5-34); Anion Gap 14 mmol/L (10-20); BUN (Urea Nitrogen) 13 mg/dL (9.8-20.1); Bilirubin, Total 0.4 mg/dL (0.2-1.2); Calc. Creatinine Clearance 0 mL/min (70-130); Calcium 8.7 mg/dL (7.8-10.44); Carbon Dioxide 25 mmol/L (22-29); Chloride 107 mmol/L (98-107); Glucose 100 mg/dL (70-105); Potassium 3.6 mmol/L (3.5-5.1); Protein, Total 6.6 g/dL (6.0-8.3); Sodium 142 mmol/L (136-145)
[2021-05-23] MEDS ORDERED: Pantoprazole 40 MG VIAL ONE (09:59)
[2021-05-23] MEDS ORDERED: Ondansetron PF 4 MG/2 ML Vial ONE (09:59)
[2021-05-23] MEDS ORDERED: Pantoprazole 40 MG VIAL IVP SCH (10:15)
[2021-05-23] MEDS ORDERED: Ondansetron PF 4 MG/2 ML Vial IVP SCH (10:15)
== END 2021-05-23 10:27 | disposition home or self-care (01) ==
LOC: MADERS 06:54
DX: R10.31 Right lower quadrant pain (principal); R11.0 Nausea; K21.9 Gastro-esophageal reflux disease without esophagitis; I10 Essential (primary) hypertension; Z87.891 Personal history of nicotine dependence; Z79.899 Other long term (current) drug therapy
CPT/HCPCS: 74177; 80053; 81003; 83605; 85025; 96374; 96375; C9113; J2405

== ENCOUNTER 2022-06-09 12:29 | Emergency (ER) | payer OTHER, SELFPAY ==
[2022-06-09] MEDS ORDERED: Ibuprofen 400 MG TAB ONE (14:53)
== END 2022-06-09 14:55 | disposition home or self-care (01) ==
LOC: MADERS 12:29
DX: S16.1XXA Strain of muscle, fascia and tendon at neck level, initial encounter (principal); S40.021A Contusion of right upper arm, initial encounter; K21.9 Gastro-esophageal reflux disease without esophagitis; I10 Essential (primary) hypertension; J44.9 Chronic obstructive pulmonary disease, unspecified; W01.0XXA Fall on same level from slipping, tripping and stumbling without subsequent striking against object, initial encounter; Z87.891 Personal history of nicotine dependence
CPT/HCPCS: 72125

== ENCOUNTER 2023-02-22 10:14 | Emergency (ER) | payer OTHER, SELFPAY | END 2023-02-22 10:50 | disposition home or self-care (01) | LOC: MADERS 10:14 | DX: H66.92 Otitis media, unspecified, left ear (principal); K21.9 Gastro-esophageal reflux disease without esophagitis; I10 Essential (primary) hypertension; E66.9 Obesity, unspecified; Z87.891 Personal history of nicotine dependence; Z79.899 Other long term (current) drug therapy | CPT/HCPCS: 99282 ==

== ENCOUNTER 2024-04-26 14:31 | Emergency (ER) | payer OTHER ==
[2024-04-26] MEDS ORDERED: Aspirin Chewable 81 MG TAB ONE (14:41)
[2024-04-26] MEDS ORDERED: Ketorolac Tromethamine 30 MG (1 mL) VIAL ONE (15:05)
[2024-04-26] MEDS ORDERED: Lidocaine 4% Patch ONE (15:06)
[2024-04-26 15:12] LABS: #Basophils 0.1 thou/uL (0.0-0.2); #Lymphocytes 1.9 thou/uL (1.20-3.40); #Monocytes 0.6 thou/uL (0.11-0.59); #Neutrophils 6.7 thou/uL (1.40-6.50); %Basophils 1.1 % (0.0-1.0); %Eosinophils 0.5 % (0.0-10.0); %Monocytes 6.2 % (0.0-10.0); %Neutrophils 72.1 % (42.0-75.0); Hematocrit 43.6 % (36.0-47.0); Hemoglobin 13.5 g/dL (12.0-16.0); Mean Corpuscular HGB CONC 30.9 g/dL (32.0-36.0); Mean Corpuscular Hemoglobin 24.9 pg (27.0-31.0); Mean Corpuscular Volume 80.8 fl (78.0-98.0); Mean Platelet Volume 8.1 fL (7.4-10.4); Platelet Count 396 10x3/uL (130-400); RBC Distribution Width 14.2 % (11.5-14.5); White Blood Cell (WBC) Count 9.3 10x3/uL (4.8-10.8)
[2024-04-26 15:22] LABS: Polychromasia SLIGHT = 2-3 cells (100X) (0-2/hpf)
[2024-04-26 15:24] LABS: ALT (SGPT) 21 U/L (8-55); AST (SGOT) 17 U/L (5-34); Albumin 4.5 g/dL (3.5-5.0); Alkaline Phosphatase 97 U/L (40-110); Anion Gap 16 mmol/L (10-20); BUN (Urea Nitrogen) 23 mg/dL (9.8-20.1); Bilirubin, Total 0.4 mg/dL (0.2-1.2); Calc. Creatinine Clearance 0 mL/min (70-130); Carbon Dioxide 20 mmol/L (22-29); Chloride 110 mmol/L (98-107); Estimated GFR 54; Globulin 3.4 g/dL (2.4-3.5); Glucose 107 mg/dL (70-105); Potassium 3.9 mmol/L (3.5-5.1); Protein, Total 7.9 g/dL (6.0-8.3); Sodium 142 mmol/L (136-145)
[2024-04-26 15:27] LABS: Troponin I Less than 0.010 ng/mL (< 0.028)
== END 2024-04-26 16:05 | disposition home or self-care (01) ==
LOC: MADERS 14:31
DX: R07.89 Other chest pain (principal); I10 Essential (primary) hypertension; K21.9 Gastro-esophageal reflux disease without esophagitis; J44.9 Chronic obstructive pulmonary disease, unspecified; F17.210 Nicotine dependence, cigarettes, uncomplicated; Z79.51 Long term (current) use of inhaled steroids; Z79.899 Other long term (current) drug therapy
CPT/HCPCS: 71045; 80053; 83880; 84484; 85025; 93005; 94760; 96374; J1885